=== PATIENT | male | born 1985 | race American Indian/Alaskan Native ===

== ENCOUNTER 2018-11-30 22:45 | Emergency (ER) | payer MEDICAID ==
--- NOTE | 2018-11-30 23:16 | EDM.PDOC ---
ED HPI GENERAL MEDICAL PROBLEM - General Chief Complaint: Upper Extremity Injury/Pain Stated Complaint: DISLOCATED FINGERS RT HAND [id number] Time Seen by Provider: 11/30/18 23:10 Source of Information: Reports: Patient History Limitations: Reports: No Limitations - History of Present Illness INITIAL COMMENTS - FREE TEXT/NARRATIVE: C/o right hand pain reports bumped hand on pole at work on Thursday, felt like it dislocated or broke. Has not been seen prior to tonight . Emplayed at tire - Related Data Allergies Allergy/AdvReac Type Severity Reaction Status Date / Time No Known Allergies Allergy Verified 11/30/18 22:50 Home Meds: Home Meds . [No Known Home Meds] 11/30/18 [History] Past Medical History - Past Surgical History GI Surgical History: Reports: Appendectomy Musculoskeletal Surgical History: Reports: Other (See Below) Other Musculoskeletal Surgeries/Procedures:: hand surgery Social & Family History - Tobacco Use Smoking Status *Q: Never Smoker Second Hand Smoke Exposure: No - Recreational Drug Use Recreational Drug Use: Yes Drug Use in Last 12 Months: Yes Recreational Drug Type: Reports: Marijuana/Hashish Review of Systems - Review of Systems Review Of Systems: See Below Constitutional: Reports: No Symptoms Eyes: Reports: No Symptoms Ears: Reports: No Symptoms Nose: Reports: No Symptoms Mouth/Throat: Reports: No Symptoms Respiratory: Reports: No Symptoms GI/Abdominal: Reports: No Symptoms Musculoskeletal: Reports: Hand Pain (right) Skin: Reports: No Symptoms Neurological: Reports: No Symptoms ED EXAM, GENERAL - Physical Exam Exam: See Below Exam Limited By: No Limitations General Appearance: Alert, Anxious Eye Exam: Bilateral Eye: PERRL Ears: Normal External Exam, Hearing Grossly Normal Nose: Normal Inspection Throat/Mouth: Normal Inspection Head: Atraumatic, Normocephalic Neck: Normal Inspection Respiratory/Chest: No Respiratory Distress Cardiovascular: Normal Peripheral Pulses, Regular Rate, Rhythm Extremities: Other (right hand mild generalized sweling anterior, no redness no bruising generalized tenderness greater 4th and 5th MCP) Neurological: Alert, Oriented, Inattentive Psychiatric: Anxious (rapid speech, ) Skin Exam: Warm, Dry, Other (multiple scattered small 3-5 mm abrasion ot palm fingers and MCP and hand. ) Course - Vital Signs Last Recorded V/S: Last Vital Signs Temp 97.2 F 11/30/18 22:47 Pulse 116 H 04/30/19 22:47 Resp 18 11/30/18 22:47 BP 153/83 H 11/30/18 22:47 Pulse Ox 99 11/30/18 22:47 - Radiology Interpretation Free Text/Narrative:: Xray right hand negative Departure - Departure Time of Disposition: 23:17 Disposition: Home, Self-Care 01 Condition: Good Clinical Impression: Contusion of right hand Qualifiers: Encounter type: initial encounter Qualified Code(s): S60.221A - Contusion of right hand, initial encounter - Discharge Information *PRESCRIPTION DRUG MONITORING PROGRAM REVIEWED*: No *COPY OF PRESCRIPTION DRUG MONITORING REPORT IN PATIENT VASU: No Instructions: Hand Contusion, [id number] Referrals: PCP,None [Primary Care Provider] - Forms: ED Department Discharge Additional Instructions: elevate magalys wrap for comfort alternate tylenol and ibuprofen for discomfort every 4 hours as needed follow up if symptoms worsen
== END 2018-11-30 23:24 | disposition home or self-care (01) ==
LOC: DL.ED 22:45
DX: S60.221A Contusion of right hand, initial encounter (principal); W22.8XXA Striking against or struck by other objects, initial encounter; Y99.0 Civilian activity done for income or pay
CPT/HCPCS: 73130-RT; 99283-25

== ENCOUNTER 2019-04-11 11:41 | Inpatient (IN) | payer MEDICAID ==
--- NOTE | 2019-04-11 11:57 | EDM.PDOC ---
ED HPI GENERAL MEDICAL PROBLEM - General Chief Complaint: ENT Problem Stated Complaint: INFECTION Time Seen by Provider: 04/11/19 11:57 Source of Information: Reports: Patient, RN, RN Notes Reviewed History Limitations: Reports: No Limitations - History of Present Illness INITIAL COMMENTS - FREE TEXT/NARRATIVE: Pt presents to ER from home with c/o waking with swelling and pain to the left face from the eye to the ear. Pt states he was seen in clinic and given Erythromycin eye ointment for an eye infection but it did not improve. This morning when he woke he notice purulent drainage from the skin just in front of the left ear, increased eye pain and swelling, and redness with swelling of the left external ear and area around the ear. Pt isn't sure if he has had any fevers or not. He admits to feeling a generalized "ill" feeling. Pt does not know if he has ever had a MRSA infection or not. Onset: Gradual Duration: Constant, Getting Worse Location: Reports: Face Quality: Reports: Ache, Pressure, Throbbing Severity: Moderate Improves with: Reports: None Worsens with: Reports: None Associated Symptoms: Reports: No Other Symptoms Treatments [employer]: Reports: Other Medication(s) (Erythromycin Ophthalmic Ointment) - Related Data Allergies Allergy/AdvReac Type Severity Reaction Status Date / Time No Known Allergies Allergy Verified 11/30/18 22:50 Home Meds: Home Meds . [No Known Home Meds] 11/30/18 [History] Past Medical History HEENT History: Reports: Hard of Hearing, Impaired Vision Endocrine/Metabolic History: Reports: Obesity/BMI 30+ - Past Surgical History GI Surgical History: Reports: Appendectomy Musculoskeletal Surgical History: Reports: Other (See Below) Other Musculoskeletal Surgeries/Procedures:: hand surgery Social & Family History - Family History Family Medical History: Noncontributory ED ROS ENT - Review of Systems Review Of Systems: ROS reveals no pertinent complaints other than HPI. ED EXAM, ENT - Physical Exam Exam: See Below Exam Limited By: No Limitations General Appearance: Alert, No Apparent Distress, Obese Eye Exam: Left Eye: Conjunctival Injection, Periorbital Changes (mild swelling/ inflammation with erythema), Bilateral Eye: EOMI, Normal Fundi, PERRL Ears: Hearing Loss (Chronic/Stable per pt.), Auricular Erythema (Left), Auricular Tenderness (and Pre-auricular with swelling, skin/soft tissue abscess with purulent drainage), Canal Swelling (Left). No: Mastoid Swelling, Mastoid Tenderness Nose: No Blood, Other (Excoriation/scabbing at B/L nares, suspicious for MRSA) Mouth/Throat: Normal Inspection, Normal Lips, Normal Oropharynx Head: Atraumatic, Facial Swelling (Left face from left eye to left ear, swelling is confined to the upper face, left side only), Facial Tenderness ( with erythema) Neck: Supple, Non-Tender, Full Range of Motion, Lymphadenopathy (L), Other (No nuchal rigidity). No: Lymphadenopathy (R) Respiratory/Chest: No Respiratory Distress, Lungs Clear, Normal Breath Sounds, No Accessory Muscle Use, Chest Non-Tender Cardiovascular: Regular Rate, Rhythm, Tachycardia Extremities: Normal Inspection, Normal Range of Motion, No Pedal Edema. No: Joint Swelling, Increased Warmth, Redness Neurological: Alert, Oriented, CN II-XII Intact, Normal Cognition, No Motor/ Sensory Deficits Psychiatric: Normal Mood Course - Vital Signs Last Recorded V/S: Last Vital Signs Temp 100.2 F 04/11/19 11:45 Pulse 114 H 04/11/19 11:45 Resp 16 04/11/19 11:45 BP 154/90 H 04/11/19 11:45 Pulse Ox - Orders/Labs/Meds Orders: Active Orders 24 hr Category Date Time Status Peripheral IV Care [RC] . DIRECTED Care 04/11/19 11:58 Active CULTURE BLOOD [BC] Stat Lab 04/11/19 12:08 Received CULTURE BLOOD [BC] Stat Lab 04/11/19 12:15 Received CULTURE EAR [RM] Stat Lab 04/11/19 11:55 Received CULTURE EYE [RM] Stat Lab 04/11/19 11:54 Received Piperacillin/Tazobactam [Zosyn] 3.375 gm Med 04/11/19 13:35 Active Sodium Chloride 0.9% [Normal Saline] 100 ml IV ONETIME Sodium Chloride 0.9% [Saline Flush] Med 04/11/19 11:58 Active 10 ml FLUSH ASDIRECTED PRN Blood Culture x2 Reflex Set [OM.PC] Stat Oth 04/11/19 11:58 Ordered Peripheral IV Insertion Adult [OM.PC] Stat Oth 04/11/19 11:57 Ordered Medication Orders Piperacillin Sod/Tazobactam (Sod 3.375 gm/ Sodium Chloride) 100 mls @ 200 mls/ hr IV ONETIME ONE Stop: 04/11/19 14:04 Sodium Chloride (Saline Flush) 10 ml FLUSH ASDIRECTED PRN PRN Reason: Keep Vein Open Last Admin: 04/11/19 12:08 Dose: 10 ml Labs: Laboratory Tests 04/11/19 04/11/19 04/11/19 Range/Units 12:08 12:08 12:15 WBC 17.2 H (5.0-10.0) 10^3/uL RBC 5.20 (4.6-6.2) 10^6/uL Hgb 15.6 (14.0-18.0) g/dL Hct 44.7 (40.0-54.0) % MCV 86.0 (80-100) fL MCH 30.0 (27.0-34.0) pg MCHC 34.9 (33.0-35.0) g/dL Plt Count 376 (150-450) 10^3/uL Neut % (Auto) 81.8 H (42.2-75.2) % Lymph % (Auto) 9.3 L (20.5-50.1) % [place] % (Auto) 6.1 (2-8) % Eos % (Auto) 2.6 (1.0-3.0) % Baso % (Auto) 0.2 (0.0-1.0) % Sodium 134 L (135-145) mmol/L Potassium 4.3 (3.6-5.0) mmol/L Chloride 102 (101-111) mmol/L Carbon Dioxide 25.0 (21.0-31.0) mmol/L Anion Gap 11.3 BUN 13 (7-18) mg/dL Creatinine 0.7 (0.6-1.3) mg/dL Est Cr Clr Drug Dosing 134.18 mL/min Estimated GFR (MDRD) > 60 BUN/Creatinine Ratio 18.57 Glucose 99 (74-105) mg/dL Lactic Acid 1.4 (0.5-2.2) mmol/L Calcium 8.9 (8.4-10.2) mg/dl Total Bilirubin 0.4 (0.2-1.0) mg/dL AST 71 H (10-42) IU/L ALT 80 H (10-60) IU/L Alkaline Phosphatase 106 (42-121) IU/L C-Reactive Protein (0.0-1.3) mg/dL Total Protein 7.5 (6.7-8.2) g/dl Albumin 4.0 (3.2-5.5) g/dl Globulin 3.5 Albumin/Globulin Ratio 1.14 04/11/19 Range/Units 12:15 WBC (5.0-10.0) 10^3/uL RBC (4.6-6.2) 10^6/uL Hgb (14.0-18.0) g/dL Hct (40.0-54.0) % MCV (80-100) fL MCH (27.0-34.0) pg MCHC (33.0-35.0) g/dL Plt Count (150-450) 10^3/uL Neut % (Auto) (42.2-75.2) % Lymph % (Auto) (20.5-50.1) % [place] % (Auto) (2-8) % Eos % (Auto) (1.0-3.0) % Baso % (Auto) (0.0-1.0) % Sodium (135-145) mmol/L Potassium (3.6-5.0) mmol/L Chloride (101-111) mmol/L Carbon Dioxide (21.0-31.0) mmol/L Anion Gap BUN (7-18) mg/dL Creatinine (0.6-1.3) mg/dL Est Cr Clr Drug Dosing mL/min Estimated GFR (MDRD) BUN/Creatinine Ratio Glucose (74-105) mg/dL Lactic Acid (0.5-2.2) mmol/L Calcium (8.4-10.2) mg/dl Total Bilirubin (0.2-1.0) mg/dL AST (10-42) IU/L ALT (10-60) IU/L Alkaline Phosphatase (42-121) IU/L C-Reactive Protein 4.1 H (0.0-1.3) mg/dL Total Protein (6.7-8.2) g/dl Albumin (3.2-5.5) g/dl Globulin Albumin/Globulin Ratio Meds: Medications Generic Name Dose Route Start Last Admin Trade Name Freq PRN Reason Stop Dose Admin Piperacillin Sod/Tazobactam 100 mls @ 200 mls/hr 04/11/19 13:35 Sod 3.375 gm/ Sodium Chloride IV 04/11/19 14:04 ONETIME ONE Sodium Chloride 10 ml 04/11/19 11:58 04/11/19 12:08 Saline Flush FLUSH 10 ml ASDIRECTED PRN Administration Keep Vein Open Discontinued Medications Generic Name Dose Route Start Last Admin Trade Name Freq PRN Reason Stop Dose Admin Diphenhydramine HCl 25 mg 04/11/19 11:58 04/11/19 12:28 Benadryl IVPUSH 04/11/19 11:59 25 mg ONETIME ONE Administration Gentamicin Sulfate 1 ml 04/11/19 12:04 04/11/19 12:26 Garamycin 0.3% Ophth Soln EYELF 04/11/19 12:05 1 ml ONETIME ONE Administration Sodium Chloride 1,000 mls @ 999 mls/hr 04/11/19 11:58 04/11/19 12:47 Normal Saline IV 04/11/19 12:58 999 mls/hr .BOLUS ONE Administration Vancomycin HCl 1,500 mg/ 500 mls @ 333.333 mls/hr 04/11/19 11:59 04/11/19 12: 28 Sodium Chloride IV 04/11/19 13:28 333.333 mls/hr ONETIME ONE Administration Iopamidol 100 ml 04/11/19 12:16 04/11/19 12:45 Isovue-300 (61%) IVPUSH 04/11/19 12:17 100 ml ONETIME ONE Administration Mupirocin 15 gm 04/11/19 12:04 04/11/19 12:24 Bactroban Oint TOP 04/11/19 12:05 15 gm ONETIME ONE Administration - Radiology Interpretation Free Text/Narrative:: [facility] Final Radiology Report Call: [phone] assistance Online chat: [email or web address] Name: STAN CHACKO Age: 33Years M Date: 04/11/2019 SSN: -- : [id number] Study: CT MAXILLOFACIAL/SINUSES W Requesting Physician: CHA PERALTA Images: [id number] Addl Studies: Provided Clinical History: Swelling L face, eye to ear, erythema. Purulent drainage from skin at pre-auricular left ear Contrast: With Contrast Medium: Isovue 300 Contrast Amount: 100 mL Contrast Method: RLA Page 1 of 2 EXAM: CT Maxillofacial With Contrast EXAM DATE/TIME: 04/11/2019 12:44 PM CLINICAL HISTORY: 33 years old, male; Other: Swelling L face, eye to ear, erythema; Additional info: Swelling L face, eye to ear, erythema. Purulent drainage from skin at pre-auricular left ear TECHNIQUE: Imaging protocol: Computed tomography images of the face with intravenous contrast. Radiation optimization: All CT scans at this facility use at least one of these dose optimization techniques: automated exposure control; mA and/or kV adjustment per patient size (includes targeted exams where dose is matched to clinical indication); or iterative reconstruction. Contrast material: ISOVUE 300; Contrast volume: 100 ml; Contrast route: RLA; COMPARISON: No relevant prior studies available. FINDINGS: Orbits: No post septal orbital inflammatory changes. Sinuses: Mild sinus mucosal thickening. No air-fluid levels. Bones/joints: No acute fracture or periostitis seen. Dental: There are maxillary premolar dental caries with periapical lucencies consistent with endodontal disease. Lymph nodes: Mildly enlarged left submandibular, periparotid and intraparotid lymph nodes, likely reactive. Submandibular/Parotid glands: The left parotid gland appears enlarged and inflamed consistent with parotiditis. STAN CHACKO | Final Radiology Report CONFIDENTIALITY STATEMENT This report is intended only for use by the referring physician, and only in accordance with law. If you received this in error, call [phone]. Page 2 of 2 Soft tissues: There is left auricular and periauricular soft tissue edema consistent with cellulitis. A left preauricular soft tissue abscess measuring 1.2 x 1.1 cm on image 8 of series 5. IMPRESSION: 1. Findings consistent with left periauricular cellulitis as well as left parotiditis. 2. There is a left preauricular soft tissue abscess measuring 1.2 x 1.1 cm. 3. Significant chronic maxillary premolar dental disease, could be a predisposing risk factor for parotiditis. Thank you for allowing us to participate in the care of your patient. Dictated and Authenticated by: Susu Haywood MD 04/11/2019 1:34 PM Central Time ([place] & [place]) Departure - Departure Time of Disposition: 13:52 (admitted to Dr. Lyon) Disposition: Admitted As Inpatient 65 Condition: Fair Clinical Impression: Facial cellulitis - Discharge Information *PRESCRIPTION DRUG MONITORING PROGRAM REVIEWED*: No *COPY OF PRESCRIPTION DRUG MONITORING REPORT IN PATIENT VASU: No Forms: ED Department Discharge - My Orders Last 24 Hours: My Active Orders 04/11/19 11:54 CULTURE EYE [RM] Stat 04/11/19 11:55 CULTURE EAR [RM] Stat 04/11/19 11:57 Peripheral IV Insertion Adult [OM.PC] Stat 04/11/19 11:58 Peripheral IV Care [RC] . DIRECTED Sodium Chloride 0.9% [Saline Flush] 10 ml FLUSH ASDIRECTED PRN Blood Culture x2 Reflex Set [OM.PC] Stat 04/11/19 12:08 CULTURE BLOOD [BC] Stat 04/11/19 12:15 CULTURE BLOOD [BC] Stat 04/11/19 13:35 Piperacillin/Tazobactam [Zosyn] 3.375 gm Sodium Chloride 0.9% [Normal Saline] 100 ml IV ONETIME - Assessment/Plan Last 24 Hours: My Active Orders 04/11/19 11:54 CULTURE EYE [RM] Stat 04/11/19 11:55 CULTURE EAR [RM] Stat 04/11/19 11:57 Peripheral IV Insertion Adult [OM.PC] Stat 04/11/19 11:58 Peripheral IV Care [RC] . DIRECTED Sodium Chloride 0.9% [Saline Flush] 10 ml FLUSH ASDIRECTED PRN Blood Culture x2 Reflex Set [OM.PC] Stat 04/11/19 12:08 CULTURE BLOOD [BC] Stat 04/11/19 12:15 CULTURE BLOOD [BC] Stat 04/11/19 13:35 Piperacillin/Tazobactam [Zosyn] 3.375 gm Sodium Chloride 0.9% [Normal Saline] 100 ml IV ONETIME
[2019-04-11] MEDS ORDERED: Sodium Chloride 0.9% 1,000 ML IV ONE (11:58)
[2019-04-11] MEDS ORDERED: diphenhydrAMINE 50 MG/ML SDV IVPUSH ONE (11:58)
[2019-04-11] MEDS ORDERED: Mupirocin Oint 22 GM Tube TOP ONE (12:04)
[2019-04-11] MEDS ORDERED: Gentamicin 0.3% Ophth Soln 5 ML Bottle EYELF ONE (12:04)
[2019-04-11] MEDS: Sodium Chloride 0.9% 10 ML Syringe FLUSH PRN ×4 (12:08→23:55)
[2019-04-11] MEDS ORDERED: Iopamidol 612 MG/ML 100 ML Bottle IVPUSH ONE (12:16)
[2019-04-11 12:43] LABS: ANION GAP 11.3; CHLORIDE,CL 102 mmol/L (101-111); SODIUM,NA 134 mmol/L (135-145)
[2019-04-11] MEDS ORDERED: Piperacillin/Tazobactam 3.375 GM in Sodium Chloride 0.9% 100 ML IV ONE (13:35)
[2019-04-11] MEDS ORDERED: Ondansetron 4 MG Tab.DIS PO PRN (14:25)
[2019-04-11] MEDS ORDERED: Ondansetron 4 MG/2 ML SDV IVPUSH PRN (14:25)
[2019-04-11] MEDS ORDERED: Acetaminophen 325 MG Tab PO PRN (14:25)
--- NOTE | 2019-04-11 14:32 | PCM.HP ---
H&P History of Present Illness - General Date of Service: 04/11/19 Admit Problem/Dx: Admission Diagnosis/Problem Admission Diagnosis/Problem Cellulitis and abscess of face Source of Information: Patient, Provider - History of Present Illness Initial Comments - Free Text/Narative: 33-year-old with history of pre-diabetes He is using methamphetamine recreationally, daily marijuana. He is not working, staying at home with his 4-year-old daughter. He developed left sided facial swelling associated with drainage from in front of the left ureter. There is moderate to severe pain associated with this. Worse with touching. Associated redness. Did not measure her temperature but has a general "ill" feeling. No chest pain, no abdominal pain. Last amphetamine use was the day before admission. - Related Data Allergies/Adverse Reactions: Allergies Allergy/AdvReac Type Severity Reaction Status Date / Time No Known Allergies Allergy Verified 11/30/18 22:50 Home Medications: Home Meds . [No Known Home Meds] 11/30/18 [History] Past Medical History HEENT History: Reports: Hard of Hearing, Impaired Vision Endocrine/Metabolic History: Reports: Obesity/BMI 30+ - Past Surgical History GI Surgical History: Reports: Appendectomy Musculoskeletal Surgical History: Reports: Other (See Below) Other Musculoskeletal Surgeries/Procedures:: hand surgery Social & Family History - Family History Family Medical History: Noncontributory - Caffeine Use Caffeine Use: Reports: Coffee, Soda - Recreational Drug Use Recreational Drug Use: Yes Drug Use in Last 12 Months: Yes Recreational Drug Type: Reports: Marijuana/Hashish, Methamphetamine H&P Review of Systems - Review of Systems: Review Of Systems: See Below General: Reports: Chills, Malaise. Denies: Fever HEENT: Reports: Other (Left facial swelling and redness between the left eye and left ear lobe) Pulmonary: Denies: Shortness of Breath Cardiovascular: Denies: Chest Pain, Edema Musculoskeletal: Reports: No Symptoms Skin: Reports: Other (Left facial swelling and redness) Neurological: Reports: Other (No vision change, no double vision). Denies: Confusion Exam - Exam Exam: See Below - Vital Signs Vital Signs: Last Vital Signs Temp 37.9 C 04/11/19 11:45 Pulse 114 H 04/11/19 11:45 Resp 16 04/11/19 11:45 BP 154/90 H 04/11/19 11:45 Pulse Ox Weight: 100.516 kg - Exam General: Alert, Oriented HEENT: Conjunctiva Clear, EOMI, Hearing Intact, Other (Swelling in the left parotid area from the external ear to I) Lungs: Clear to Auscultation Cardiovascular: Regular Rate, Regular Rhythm GI/Abdominal Exam: Normal Bowel Sounds, Soft, Non-Tender Extremities: No Pedal Edema Skin: Warm, Other (Swelling and redness of left facial area) Neuro Extensive - Mental Status: Alert, Oriented x3, Other (Somewhat jittery) Psychiatric: Alert, Anxious - Patient Data Lab Results Last 24 hrs: Laboratory Results - last 24 hr 04/11/19 04/11/19 04/11/19 Range/Units 12:08 12:08 12:15 WBC 17.2 H (5.0-10.0) 10^3/uL RBC 5.20 (4.6-6.2) 10^6/uL Hgb 15.6 (14.0-18.0) g/dL Hct 44.7 (40.0-54.0) % MCV 86.0 (80-100) fL MCH 30.0 (27.0-34.0) pg MCHC 34.9 (33.0-35.0) g/dL Plt Count 376 (150-450) 10^3/uL Neut % (Auto) 81.8 H (42.2-75.2) % Lymph % (Auto) 9.3 L (20.5-50.1) % [place] % (Auto) 6.1 (2-8) % Eos % (Auto) 2.6 (1.0-3.0) % Baso % (Auto) 0.2 (0.0-1.0) % Sodium 134 L (135-145) mmol/L Potassium 4.3 (3.6-5.0) mmol/L Chloride 102 (101-111) mmol/L Carbon Dioxide 25.0 (21.0-31.0) mmol/L Anion Gap 11.3 BUN 13 (7-18) mg/dL Creatinine 0.7 (0.6-1.3) mg/dL Est Cr Clr Drug Dosing 134.18 mL/min Estimated GFR (MDRD) > 60 BUN/Creatinine Ratio 18.57 Glucose 99 (74-105) mg/dL Lactic Acid 1.4 (0.5-2.2) mmol/L Calcium 8.9 (8.4-10.2) mg/dl Total Bilirubin 0.4 (0.2-1.0) mg/dL AST 71 H (10-42) IU/L ALT 80 H (10-60) IU/L Alkaline Phosphatase 106 (42-121) IU/L C-Reactive Protein (0.0-1.3) mg/dL Total Protein 7.5 (6.7-8.2) g/dl Albumin 4.0 (3.2-5.5) g/dl Globulin 3.5 Albumin/Globulin Ratio 1.14 /04/21 Range/Units 12:15 WBC (5.0-10.0) 10^3/uL RBC (4.6-6.2) 10^6/uL Hgb (14.0-18.0) g/dL Hct (40.0-54.0) % MCV (80-100) fL MCH (27.0-34.0) pg MCHC (33.0-35.0) g/dL Plt Count (150-450) 10^3/uL Neut % (Auto) (42.2-75.2) % Lymph % (Auto) (20.5-50.1) % [place] % (Auto) (2-8) % Eos % (Auto) (1.0-3.0) % Baso % (Auto) (0.0-1.0) % Sodium (135-145) mmol/L Potassium (3.6-5.0) mmol/L Chloride (101-111) mmol/L Carbon Dioxide (21.0-31.0) mmol/L Anion Gap BUN (7-18) mg/dL Creatinine (0.6-1.3) mg/dL Est Cr Clr Drug Dosing mL/min Estimated GFR (MDRD) BUN/Creatinine Ratio Glucose (74-105) mg/dL Lactic Acid (0.5-2.2) mmol/L Calcium (8.4-10.2) mg/dl Total Bilirubin (0.2-1.0) mg/dL AST (10-42) IU/L ALT (10-60) IU/L Alkaline Phosphatase (42-121) IU/L C-Reactive Protein 4.1 H (0.0-1.3) mg/dL Total Protein (6.7-8.2) g/dl Albumin (3.2-5.5) g/dl Globulin Albumin/Globulin Ratio Result Diagrams: 04/11/19 12:08 04/11/19 12:15 Imaging Impressions Last 24 hrs: CT facial IMPRESSION: 1. Findings consistent with left periauricular cellulitis as well as left parotiditis. 2. There is a left preauricular soft tissue abscess measuring 1.2 x 1.1 cm. 3. Significant chronic maxillary premolar dental disease, could be a predisposing risk factor for parotiditis. - Problem List (1) Facial cellulitis SNOMED Code(s): 729589291 ICD Code: L03.211 - CELLULITIS OF FACE Status: Acute Current Visit: No Problem List Initiated/Reviewed/Updated: Yes Orders Last 24hrs: Active Orders 24 hr Category Date Time Status Admission Diagnosis [ADT] Routine ADT 04/11/19 13:52 Ordered Patient Status [ADT] Routine ADT 04/11/19 13:52 Active Oxygen Therapy [RC] PRN Care 04/11/19 14:25 Ordered Peripheral IV Care [RC] . DIRECTED Care 04/11/19 11:58 Active Up With Assistance [RC] ASDIRECTED Care 04/11/19 14:25 Ordered VTE/DVT Education [RC] PER UNIT ROUTINE Care 04/11/19 14:25 Ordered Vital Signs [RC] Q4H Care 04/11/19 14:25 Ordered Regular Diet [DIET] Diet 04/11/19 Dinner Ordered BASIC METABOLIC PANEL,BMP [CHEM] AM Lab 04/12/19 05:15 Ordered CBC WITH AUTO DIFF [HEME] AM Lab 04/12/19 05:15 Ordered CULTURE BLOOD [BC] Stat Lab 04/11/19 12:08 Received CULTURE BLOOD [BC] Stat Lab 04/11/19 12:15 Received CULTURE EAR [RM] Stat Lab 04/11/19 11:55 Received CULTURE EYE [RM] Stat Lab 04/11/19 11:54 Received Acetaminophen [Tylenol] Med 04/11/19 14:25 Ordered 650 mg PO Q4H PRN Acetaminophen/oxyCODONE [Percocet 325-5 MG] Med 04/11/19 14:25 Ordered 1 tab PO Q4H PRN Gentamicin [Garamycin 0.3% Ophth Soln] Med 04/11/19 21:00 Ordered 1 ml EYELF TID Heparin Sodium Med 04/11/19 22:00 Ordered 5,000 units SUBCUT Q8HR Ibuprofen [Motrin] Med 04/11/19 14:25 Ordered 600 mg PO Q6H PRN Ondansetron [Zofran ODT] Med 04/11/19 14:25 Ordered 4 mg PO Q6H PRN Ondansetron [Zofran] Med 04/11/19 14:25 Ordered 4 mg IVPUSH Q6H PRN Pharmacy to Dose - Vancomycin Med 04/11/19 14:30 Ordered 1 dose .XX ASDIRECTED Piperacillin/Tazobactam [Zosyn] 3.375 gm Med 04/11/19 19:00 Ordered Sodium Chloride 0.9% [Normal Saline] 100 ml IV Q6H Sodium Chloride 0.9% [Saline Flush] Med 04/11/19 11:58 Active 10 ml FLUSH ASDIRECTED PRN Zolpidem [Ambien] Med 04/11/19 14:25 Ordered 5 mg PO BEDTIME PRN Blood Culture x2 Reflex Set [OM.PC] Stat Ot 04/11/19 11:58 Ordered Peripheral IV Insertion Adult [OM.PC] Stat Ot 04/11/19 11:57 Ordered Resuscitation Status Routine Resus Stat 04/11/19 14:25 Ordered Medication Orders Acetaminophen (Tylenol) 650 mg PO Q4H PRN PRN Reason: Pain (Mild 1-3)/fever Gentamicin Sulfate (Garamycin 0.3% [facility]) 1 ml EYELF TID SHAINA Heparin Sodium (Porcine) (Heparin Sodium) 5,000 units SUBCUT Q8HR SHAINA Piperacillin Sod/Tazobactam (Sod 3.375 gm/ Sodium Chloride) 100 mls @ 200 mls/ hr IV Q6HR SHAINA Ibuprofen (Motrin) 600 mg PO Q6H PRN PRN Reason: Pain (moderate 4-6) Ondansetron HCl (Zofran) 4 mg IVPUSH Q6H PRN PRN Reason: Nausea/Vomiting Ondansetron HCl (Zofran Odt) 4 mg PO Q6H PRN PRN Reason: nausea, able to take PO Oxycodone/Acetaminophen (Percocet 325-5 Mg) 1 tab PO Q4H PRN PRN Reason: Pain (severe 7-10) Sodium Chloride (Saline Flush) 10 ml FLUSH ASDIRECTED PRN PRN Reason: Keep Vein Open Last Admin: 04/11/19 12:08 Dose: 10 ml Vancomycin HCl (Pharmacy To Dose - Vancomycin) 1 dose .XX ASDIRECTED SHAINA Zolpidem Tartrate (Ambien) 5 mg PO BEDTIME PRN PRN Reason: Sleep Assessment/Plan Comment:: 43-year-old presented with left facial redness, swelling, 1 x 1 cm abscess Facial cellulitis with small abscess At this point the abscess probably can be treated with medications We'll monitor closely for needs surgical drainage Obtain blood culture, culture from drainage Treat empirically with vancomycin and Zosyn History of drug use with amphetamine, marijuana Follow for potential withdrawal symptoms History of present diabetes We'll check fasting sugar in the morning DVT prophylaxis with subcutaneous heparin
[2019-04-11] MEDS: Ibuprofen 600 MG Tab PO PRN ×2 (16:21→22:24)
[2019-04-11] MEDS: Piperacillin/Tazobactam 3.375 GM in Sodium Chloride 0.9% 100 ML IV SCH ×2 (17:48→23:56)
[2019-04-11] MEDS: Gentamicin 0.3% Ophth Soln 5 ML Bottle EYELF SCH (20:19)
[2019-04-11] MEDS: Heparin Sodium 5,000 Units/ML Vial SUBCUT SCH (22:15)
[2019-04-11] MEDS: Zolpidem 5 MG Tab PO PRN (22:39)
[2019-04-12] MEDS: Sodium Chloride 0.9% 10 ML Syringe FLUSH PRN ×4 (04:19→23:59)
[2019-04-12] MEDS: Ibuprofen 600 MG Tab PO PRN (04:29)
[2019-04-12] MEDS: Piperacillin/Tazobactam 3.375 GM in Sodium Chloride 0.9% 100 ML IV SCH ×4 (06:11→23:59)
[2019-04-12] MEDS: Heparin Sodium 5,000 Units/ML Vial SUBCUT SCH ×3 (06:19→21:34)
[2019-04-12 07:03] LABS: ANION GAP 12.8; CHLORIDE,CL 102 mmol/L (101-111); SODIUM,NA 138 mmol/L (135-145)
[2019-04-12] MEDS: Gentamicin 0.3% Ophth Soln 5 ML Bottle EYELF SCH ×3 (09:22→20:49)
--- NOTE | 2019-04-12 10:44 | PCM.PN ---
- General Info Date of Service: 04/12/19 Admission Dx/Problem (Free Text): Admission Diagnosis/Problem Admission Diagnosis/Problem Cellulitis and abscess of face Subjective Update: Continues to have left facial swelling and discomfort associated with this. Started prior to admission. Moderate to severe degree. There is an area of a small about 1 cm abscess that is draining anterior to the external ear canal. Good drainage is coming. Tolerating antibiotics. Tolerating pain. Functional Status: Reports: Pain Controlled, Tolerating Diet, Ambulating - Review of Systems General: Denies: Fever HEENT: Reports: Other (Swelling on the left side) Pulmonary: Denies: Shortness of Breath Cardiovascular: Denies: Chest Pain Gastrointestinal: Denies: Abdominal Pain Genitourinary: Denies: Dysuria Neurological: Denies: Confusion - Patient Data Vitals - Most Recent: Last Vital Signs Temp 37.0 C 04/12/19 07:00 Pulse 76 04/12/19 07:00 Resp 20 04/12/19 07:00 BP 116/69 04/12/19 07:00 Pulse Ox 99 04/12/19 07:00 Weight - Most Recent: 100.516 kg I&O - Last 24 Hours: Intake & Output 04/11/19 04/12/19 04/12/19 22:59 06:59 14:59 Intake Total 1270 450 440 Balance 1270 450 440 Lab Results Last 24 Hours: Laboratory Results - last 24 hr 04/11/19 04/11/19 04/11/19 Range/Units 12:08 12:08 12:15 WBC 17.2 H (5.0-10.0) 10^3/uL RBC 5.20 (4.6-6.2) 10^6/uL Hgb 15.6 (14.0-18.0) g/dL Hct 44.7 (40.0-54.0) % MCV 86.0 (80-100) fL MCH 30.0 (27.0-34.0) pg MCHC 34.9 (33.0-35.0) g/dL Plt Count 376 (150-450) 10^3/uL Neut % (Auto) 81.8 H (42.2-75.2) % Lymph % (Auto) 9.3 L (20.5-50.1) % [place] % (Auto) 6.1 (2-8) % Eos % (Auto) 2.6 (1.0-3.0) % Baso % (Auto) 0.2 (0.0-1.0) % Sodium 134 L (135-145) mmol/L Potassium 4.3 (3.6-5.0) mmol/L Chloride 102 (101-111) mmol/L Carbon Dioxide 25.0 (21.0-31.0) mmol/L Anion Gap 11.3 BUN 13 (7-18) mg/dL Creatinine 0.7 (0.6-1.3) mg/dL Est Cr Clr Drug Dosing 134.18 mL/min Estimated GFR (MDRD) > 60 BUN/Creatinine Ratio 18.57 Glucose 99 (74-105) mg/dL Lactic Acid 1.4 (0.5-2.2) mmol/L Calcium 8.9 (8.4-10.2) mg/dl Total Bilirubin 0.4 (0.2-1.0) mg/dL AST 71 H (10-42) IU/L ALT 80 H (10-60) IU/L Alkaline Phosphatase 106 (42-121) IU/L C-Reactive Protein (0.0-1.3) mg/dL Total Protein 7.5 (6.7-8.2) g/dl Albumin 4.0 (3.2-5.5) g/dl Globulin 3.5 Albumin/Globulin Ratio 1.14 04/11/19 04/12/19 04/12/19 Range/Units 12:15 05:50 05:50 WBC 12.4 H (5.0-10.0) 10^3/uL RBC 4.88 (4.6-6.2) 10^6/uL Hgb 14.7 (14.0-18.0) g/dL Hct 42.8 (40.0-54.0) % MCV 87.7 (80-100) fL MCH 30.1 (27.0-34.0) pg MCHC 34.3 (33.0-35.0) g/dL Plt Count 337 (150-450) 10^3/uL Neut % (Auto) 70.6 (42.2-75.2) % Lymph % (Auto) 16.1 L (20.5-50.1) % [place] % (Auto) 7.0 (2-8) % Eos % (Auto) 6.0 H (1.0-3.0) % Baso % (Auto) 0.3 (0.0-1.0) % Sodium 138 (135-145) mmol/L Potassium 3.8 (3.6-5.0) mmol/L Chloride 102 (101-111) mmol/L Carbon Dioxide 27.0 (21.0-31.0) mmol/L Anion Gap 12.8 BUN 6 L (7-18) mg/dL Creatinine 0.9 (0.6-1.3) mg/dL Est Cr Clr Drug Dosing 104.36 mL/min Estimated GFR (MDRD) > 60 BUN/Creatinine Ratio Glucose 103 (74-105) mg/dL Lactic Acid (0.5-2.2) mmol/L Calcium 8.5 (8.4-10.2) mg/dl Total Bilirubin (0.2-1.0) mg/dL AST (10-42) IU/L ALT (10-60) IU/L Alkaline Phosphatase (42-121) IU/L C-Reactive Protein 4.1 H (0.0-1.3) mg/dL Total Protein (6.7-8.2) g/dl Albumin (3.2-5.5) g/dl Globulin Albumin/Globulin Ratio Joao Results Last 24 Hours: Microbiology 04/11/19 11:55 Ear Culture - Preliminary Ear, Left 04/11/19 11:54 Eye Culture - Preliminary Eye, Left Med Orders - Current: Current Medications Acetaminophen (Tylenol) 650 mg PO Q4H PRN PRN Reason: Pain (Mild 1-3)/fever Gentamicin Sulfate (Garamycin 0.3% Ophth Soln) 0 ml EYELF TID [facility] Last Admin: 04/12/19 09:22 Dose: 1 drop Heparin Sodium (Porcine) (Heparin Sodium) 5,000 units SUBCUT Q8HR [facility] Last Admin: 04/12/19 06:19 Dose: 5,000 units Piperacillin Sod/Tazobactam (Sod 3.375 gm/ Sodium Chloride) 100 mls @ 200 mls/ hr IV Q6HR [facility] Last Infusion: 04/12/19 06:48 Dose: Infused Vancomycin HCl 1.25 gm/ Sodium (Chloride) 250 mls @ 166.667 mls/hr IV Q8H [facility] Last Admin: 04/12/19 04:25 Dose: 166.667 mls/hr Ibuprofen (Motrin) 600 mg PO Q6H PRN PRN Reason: Pain (moderate 4-6) Last Admin: 04/12/19 04:29 Dose: 600 mg Ondansetron HCl (Zofran) 4 mg IVPUSH Q6H PRN PRN Reason: Nausea/Vomiting Ondansetron HCl (Zofran Odt) 4 mg PO Q6H PRN PRN Reason: nausea, able to take PO Oxycodone/Acetaminophen (Percocet 325-5 Mg) 1 tab PO Q4H PRN PRN Reason: Pain (severe 7-10) Sodium Chloride (Saline Flush) 10 ml FLUSH ASDIRECTED PRN PRN Reason: Keep Vein Open Last Admin: 04/12/19 04:19 Dose: 10 ml Vancomycin HCl (Pharmacy To Dose - Vancomycin) 0 dose .XX ASDIRECTED [facility] Zolpidem Tartrate (Ambien) 5 mg PO BEDTIME PRN PRN Reason: Sleep Last Admin: 04/11/19 22:39 Dose: 5 mg Discontinued Medications Diphenhydramine HCl (Benadryl) 25 mg IVPUSH ONETIME ONE Stop: 04/11/19 11:59 Last Admin: 04/11/19 12:28 Dose: 25 mg Gentamicin Sulfate (Garamycin 0.3% [facility]) 1 ml EYELF ONETIME ONE Stop: 04/11/19 12:05 Last Admin: 04/11/19 12:26 Dose: 1 ml Sodium Chloride (Normal Saline) 1,000 mls @ 999 mls/hr IV .BOLUS ONE Stop: 04/11/19 12:58 Last Infusion: 04/11/19 16:41 Dose: Infused Vancomycin HCl 1,500 mg/ (Sodium Chloride) 500 mls @ 333.333 mls/hr IV ONETIME ONE Stop: 04/11/19 13:28 Last Infusion: 04/11/19 16:40 Dose: Infused Piperacillin Sod/Tazobactam (Sod 3.375 gm/ Sodium Chloride) 100 mls @ 200 mls/ hr IV ONETIME ONE Stop: 04/11/19 14:04 Last Admin: 04/11/19 16:40 Dose: Not Given Vancomycin HCl 1.25 gm/ Sodium (Chloride) 250 mls @ 166.667 mls/hr IV Q8HR [facility] Iopamidol (Isovue-300 (61%)) 100 ml IVPUSH ONETIME ONE Stop: 04/11/19 12:17 Last Admin: 04/11/19 12:45 Dose: 100 ml Mupirocin (Bactroban Oint) 15 gm TOP ONETIME ONE Stop: 04/11/19 12:05 Last Admin: 04/11/19 12:24 Dose: 15 gm - Exam General: Alert, Oriented HEENT: Other (Left facial swelling with small about 1 cm fluctuating abscess with pussy drainage) Neck: Supple Lungs: Clear to Auscultation, Normal Respiratory Effort Cardiovascular: Regular Rate, Regular Rhythm GI/Abdominal Exam: Normal Bowel Sounds, Soft, Non-Tender Extremities: No Pedal Edema Skin: Warm, Dry Neurological: No New Focal Deficit Psy/Mental Status: Alert, Normal Affect, Normal Mood - Problem List & Annotations (1) Facial cellulitis SNOMED Code(s): 730815247 Code(s): L03.211 - CELLULITIS OF FACE Status: Acute Current Visit: No - Problem List Review Problem List Initiated/Reviewed/Updated: Yes - My Orders Last 24 Hours: My Active Orders 04/11/19 14:25 Oxygen Therapy [RC] PRN Up With Assistance [RC] ASDIRECTED VTE/DVT Education [RC] PER UNIT ROUTINE Vital Signs [RC] 07,11,15,19,23,03 Acetaminophen [Tylenol] 650 mg PO Q4H PRN Acetaminophen/oxyCODONE [Percocet 325-5 MG] 1 tab PO Q4H PRN Ibuprofen [Motrin] 600 mg PO Q6H PRN Ondansetron [Zofran ODT] 4 mg PO Q6H PRN Ondansetron [Zofran] 4 mg IVPUSH Q6H PRN Zolpidem [Ambien] 5 mg PO BEDTIME PRN Resuscitation Status Routine 04/11/19 14:30 Pharmacy to Dose - Vancomycin 0 dose .XX ASDIRECTED 04/11/19 18:00 Piperacillin/Tazobactam [Zosyn] 3.375 gm Sodium Chloride 0.9% [Normal Saline] 100 ml IV Q6HR 04/11/19 20:00 Vancomycin 1.25 gm Sodium Chloride 0.9% [Normal Saline] 250 ml IV Q8H 04/11/19 21:00 Gentamicin [Garamycin 0.3% Ophth Soln] 0 ml EYELF TID 04/11/19 22:00 Heparin Sodium 5,000 units SUBCUT Q8HR 04/11/19 Dinner Regular Diet [DIET] 04/12/19 19:30 VANCOMYCIN TROUGH [CHEM] Timed 04/13/19 05:15 BASIC METABOLIC PANEL,BMP [CHEM] AM CBC WITH AUTO DIFF [HEME] AM - Plan Plan:: 43-year-old presented with left facial redness, swelling, 1 x 1 cm abscess Facial cellulitis with small abscess At this point the abscess probably can be treated with medications It is draining well I do not think that the further surgical I&D is necessary We'll monitor closely for needs surgical drainage Pending blood culture, culture from drainage Treat empirically with vancomycin and Zosyn History of drug use with amphetamine, marijuana Follow for potential withdrawal symptoms History of present diabetes Today had normal fasting blood sugar in the morning DVT prophylaxis with subcutaneous heparin
[2019-04-12] MEDS: Acetaminophen/oxyCODONE 325-5 MG Tab PO PRN ×3 (10:58→19:59)
[2019-04-12] MEDS: Zolpidem 5 MG Tab PO PRN (21:34)
[2019-04-13] MEDS: Sodium Chloride 0.9% 10 ML Syringe FLUSH PRN ×2 (04:03→05:57)
[2019-04-13] MEDS: Heparin Sodium 5,000 Units/ML Vial SUBCUT SCH ×3 (05:43→21:03)
[2019-04-13] MEDS: Piperacillin/Tazobactam 3.375 GM in Sodium Chloride 0.9% 100 ML IV SCH (05:57)
[2019-04-13] MEDS: Acetaminophen/oxyCODONE 325-5 MG Tab PO PRN (06:08)
[2019-04-13 07:21] LABS: ANION GAP 12.2; CHLORIDE,CL 104 mmol/L (101-111); SODIUM,NA 139 mmol/L (135-145)
[2019-04-13] MEDS ORDERED: Potassium Chloride 10 MEQ Tab.ER PO ONE (08:23)
[2019-04-13] MEDS ORDERED: Iopamidol 612 MG/ML 100 ML Bottle IVPUSH ONE (09:32)
[2019-04-13] MEDS: Gentamicin 0.3% Ophth Soln 5 ML Bottle EYELF SCH ×3 (09:33→21:00)
--- NOTE | 2019-04-13 11:10 | PCM.PN ---
- General Info Date of Service: 04/13/19 Admission Dx/Problem (Free Text): Admission Diagnosis/Problem Admission Diagnosis/Problem Cellulitis and abscess of face Subjective Update: facial cellulitis improving, swelling and redness improved no painful distress no visual disturbance has chronic hearing loss, known, sees java developer consultant Functional Status: Reports: Pain Controlled - Review of Systems General: Denies: Fever HEENT: Reports: Other (chronic hearing loss, facial swelling) Pulmonary: Reports: No Symptoms Cardiovascular: Reports: No Symptoms Gastrointestinal: Reports: No Symptoms Genitourinary: Reports: No Symptoms Musculoskeletal: Reports: No Symptoms Skin: Reports: No Symptoms Neurological: Reports: No Symptoms - Patient Data Vitals - Most Recent: Last Vital Signs Temp 37.6 C 04/13/19 08:09 Pulse 86 04/13/19 08:09 Resp 20 04/13/19 08:09 BP 123/67 04/13/19 08:09 Pulse Ox 95 04/13/19 08:09 Weight - Most Recent: 100.516 kg I&O - Last 24 Hours: Intake & Output 04/12/19 04/13/19 04/13/19 22:59 06:59 14:59 Intake Total 550 450 440 Balance 550 450 440 Lab Results Last 24 Hours: Laboratory Results - last 24 hr 04/12/19 04/13/19 04/13/19 Range/Units 19:57 05:55 05:55 WBC 11.6 H (5.0-10.0) 10^3/uL RBC 4.66 (4.6-6.2) 10^6/uL Hgb 14.0 (14.0-18.0) g/dL Hct 41.0 (40.0-54.0) % MCV 88.0 (80-100) fL MCH 30.0 (27.0-34.0) pg MCHC 34.1 (33.0-35.0) g/dL Plt Count 372 (150-450) 10^3/uL Neut % (Auto) 63.0 (42.2-75.2) % Lymph % (Auto) 21.5 (20.5-50.1) % [place] % (Auto) 7.1 (2-8) % Eos % (Auto) 7.9 H (1.0-3.0) % Baso % (Auto) 0.5 (0.0-1.0) % Sodium 139 (135-145) mmol/L Potassium 3.2 L (3.6-5.0) mmol/L Chloride 104 (101-111) mmol/L Carbon Dioxide 26.0 (21.0-31.0) mmol/L Anion Gap 12.2 BUN 4 L (7-18) mg/dL Creatinine 0.7 (0.6-1.3) mg/dL Est Cr Clr Drug Dosing 134.18 mL/min Estimated GFR (MDRD) > 60 Glucose 137 H (74-105) mg/dL Calcium 8.2 L (8.4-10.2) mg/dl Vancomycin Trough 10.1 (10-15) ug/ml Joao Results Last 24 Hours: Microbiology 04/11/19 11:55 Ear Culture - Final Ear, Left Staphylococcus Aureus 04/11/19 11:54 Eye Culture - Final Eye, Left Staphylococcus Aureus 04/11/19 12:15 Aerobic Blood Culture - Preliminary Blood - Venous - Lab Draw NO GROWTH AFTER 1 DAY Anaerobic Blood Culture - Preliminary NO GROWTH AFTER 1 DAY 04/11/19 12:08 Aerobic Blood Culture - Preliminary Blood - Venous NO GROWTH AFTER 1 DAY Anaerobic Blood Culture - Preliminary NO GROWTH AFTER 1 DAY Med Orders - Current: Current Medications Acetaminophen (Tylenol) 650 mg PO Q4H PRN PRN Reason: Pain (Mild 1-3)/fever Gentamicin Sulfate (Garamycin 0.3% Ophth Soln) 0 ml EYELF TID [facility] Last Admin: 04/13/19 09:33 Dose: 1 drop Heparin Sodium (Porcine) (Heparin Sodium) 5,000 units SUBCUT Q8HR [facility] Last Admin: 04/13/19 05:43 Dose: 5,000 units Vancomycin HCl 1.25 gm/ Sodium (Chloride) 250 mls @ 166.667 mls/hr IV Q8H [facility] Last Admin: 04/13/19 04:04 Dose: 166.667 mls/hr Ibuprofen (Motrin) 600 mg PO Q6H PRN PRN Reason: Pain (moderate 4-6) Last Admin: 04/12/19 04:29 Dose: 600 mg Ondansetron HCl (Zofran) 4 mg IVPUSH Q6H PRN PRN Reason: Nausea/Vomiting Ondansetron HCl (Zofran Odt) 4 mg PO Q6H PRN PRN Reason: nausea, able to take PO Oxycodone/Acetaminophen (Percocet 325-5 Mg) 1 tab PO Q4H PRN PRN Reason: Pain (severe 7-10) Last Admin: 04/13/19 06:08 Dose: 1 tab Sodium Chloride (Saline Flush) 10 ml FLUSH ASDIRECTED PRN PRN Reason: Keep Vein Open Last Admin: 04/13/19 05:57 Dose: 10 ml Vancomycin HCl (Pharmacy To Dose - Vancomycin) 0 dose .XX ASDIRECTED [facility] Zolpidem Tartrate (Ambien) 5 mg PO BEDTIME PRN PRN Reason: Sleep Last Admin: 04/12/19 21:34 Dose: 5 mg Discontinued Medications Diphenhydramine HCl (Benadryl) 25 mg IVPUSH ONETIME ONE Stop: 04/11/19 11:59 Last Admin: 04/11/19 12:28 Dose: 25 mg Gentamicin Sulfate (Garamycin 0.3% [facility]) 1 ml EYELF ONETIME ONE Stop: 04/11/19 12:05 Last Admin: 04/11/19 12:26 Dose: 1 ml Sodium Chloride (Normal Saline) 1,000 mls @ 999 mls/hr IV .BOLUS ONE Stop: 04/11/19 12:58 Last Infusion: 04/11/19 16:41 Dose: Infused Vancomycin HCl 1,500 mg/ (Sodium Chloride) 500 mls @ 333.333 mls/hr IV ONETIME ONE Stop: 04/11/19 13:28 Last Infusion: 04/11/19 16:40 Dose: Infused Piperacillin Sod/Tazobactam (Sod 3.375 gm/ Sodium Chloride) 100 mls @ 200 mls/ hr IV ONETIME ONE Stop: 04/11/19 14:04 Last Admin: 04/11/19 16:40 Dose: Not Given Piperacillin Sod/Tazobactam (Sod 3.375 gm/ Sodium Chloride) 100 mls @ 200 mls/ hr IV Q6HR [facility] Last Infusion: 04/13/19 06:47 Dose: Infused Vancomycin HCl 1.25 gm/ Sodium (Chloride) 250 mls @ 166.667 mls/hr IV Q8HR [facility] Iopamidol (Isovue-300 (61%)) 100 ml IVPUSH ONETIME ONE Stop: 04/11/19 12:17 Last Admin: 04/11/19 12:45 Dose: 100 ml Iopamidol (Isovue-300 (61%)) 100 ml IVPUSH ONETIME ONE Stop: 04/13/19 09:33 Last Admin: 04/13/19 09:43 Dose: 100 ml Mupirocin (Bactroban Oint) 15 gm TOP ONETIME ONE Stop: 04/11/19 12:05 Last Admin: 04/11/19 12:24 Dose: 15 gm Potassium Chloride (Klor-Con 10) 40 meq PO ONETIME ONE Stop: 04/13/19 08:24 Last Admin: 04/13/19 09:32 Dose: 40 meq - Exam General: Alert, Oriented HEENT: Pupils Equal, Pupils Reactive Neck: Supple Lungs: Clear to Auscultation, Normal Respiratory Effort Cardiovascular: Regular Rate, Regular Rhythm GI/Abdominal Exam: Normal Bowel Sounds, Soft, Non-Tender Extremities: Normal Inspection, Normal Range of Motion, Non-Tender Physical Findings Comments:: redness, tenderness over left maxillary face, extending to external ear. Improving - Problem List Review Problem List Initiated/Reviewed/Updated: Yes - My Orders Last 24 Hours: My Active Orders 04/14/19 05:11 BASIC METABOLIC PANEL,BMP [CHEM] AM CBC W/O DIFF,HEMOGRAM [HEME] AM 04/15/19 05:11 BASIC METABOLIC PANEL,BMP [CHEM] AM CBC W/O DIFF,HEMOGRAM [HEME] AM 04/16/19 05:11 BASIC METABOLIC PANEL,BMP [CHEM] AM CBC W/O DIFF,HEMOGRAM [HEME] AM - Plan Plan:: 43-year-old presented with left facial redness, swelling, 1 x 1 cm abscess Facial cellulitis with small abscess Repeat CT of facial sinuses shows that abscess is smaller in volume Continue broad spectrum abx Plan for discharge later this week on oral abx Hypokalemia replenish potassium orally DVT prophylaxis with subcutaneous heparin
[2019-04-13] MEDS: Sodium Chloride 0.9% 1,000 ML IV SCH (12:31)
[2019-04-13] MEDS: Zolpidem 5 MG Tab PO PRN (21:06)
[2019-04-14] MEDS: Sodium Chloride 0.9% 1,000 ML IV SCH (01:35)
[2019-04-14] MEDS: Heparin Sodium 5,000 Units/ML Vial SUBCUT SCH ×3 (05:53→21:44)
[2019-04-14 07:20] LABS: CHLORIDE,CL 103 mmol/L (101-111); SODIUM,NA 139 mmol/L (135-145)
[2019-04-14] MEDS: Gentamicin 0.3% Ophth Soln 5 ML Bottle EYELF SCH ×4 (09:58→21:43)
--- NOTE | 2019-04-14 10:05 | PCM.PN ---
- General Info Date of Service: 04/14/19 Admission Dx/Problem (Free Text): Admission Diagnosis/Problem Admission Diagnosis/Problem Cellulitis and abscess of face Subjective Update: facial cellulitis improving, swelling and redness improved Swelling has punctum and expressing pus. Wound dressed this morning no visual disturbance has chronic hearing loss, known, sees bog cutter - Review of Systems General: Reports: No Symptoms. Denies: Fever HEENT: Reports: Other (left external ear wound/abscess) Pulmonary: Reports: No Symptoms Cardiovascular: Reports: No Symptoms Gastrointestinal: Reports: No Symptoms Genitourinary: Reports: No Symptoms Musculoskeletal: Reports: No Symptoms - Patient Data Vitals - Most Recent: Last Vital Signs Temp 36.4 C 04/14/19 07:26 Pulse 97 04/14/19 07:26 Resp 19 04/14/19 07:26 BP 116/71 04/14/19 07:26 Pulse Ox 97 04/14/19 07:26 Weight - Most Recent: 100.516 kg I&O - Last 24 Hours: Intake & Output 04/13/19 04/14/19 04/14/19 22:59 06:59 14:59 Intake Total 690 2513 360 Balance 690 2513 360 Lab Results Last 24 Hours: Laboratory Results - last 24 hr 04/14/19 04/14/19 Range/Units 06:45 06:45 WBC 7.0 (5.0-10.0) 10^3/uL RBC 4.78 (4.6-6.2) 10^6/uL Hgb 14.3 (14.0-18.0) g/dL Hct 42.0 (40.0-54.0) % MCV 87.9 (80-100) fL MCH 29.9 (27.0-34.0) pg MCHC 34.0 (33.0-35.0) g/dL Plt Count 364 (150-450) 10^3/uL Sodium 139 (135-145) mmol/L Potassium 4.0 (3.6-5.0) mmol/L Chloride 103 (101-111) mmol/L Carbon Dioxide 27.0 (21.0-31.0) mmol/L Anion Gap 13.0 BUN 8 (7-18) mg/dL Creatinine 0.7 (0.6-1.3) mg/dL Est Cr Clr Drug Dosing 134.18 mL/min Estimated GFR (MDRD) > 60 Glucose 100 (74-105) mg/dL Calcium 8.8 (8.4-10.2) mg/dl Joao Results Last 24 Hours: Microbiology 04/11/19 12:15 Aerobic Blood Culture - Preliminary Blood - Venous - Lab Draw NO GROWTH AFTER 2 DAYS Anaerobic Blood Culture - Preliminary NO GROWTH AFTER 2 DAYS 04/11/19 12:08 Aerobic Blood Culture - Preliminary Blood - Venous NO GROWTH AFTER 2 DAYS Anaerobic Blood Culture - Preliminary NO GROWTH AFTER 2 DAYS 04/11/19 11:55 Ear Culture - Final Ear, Left Staphylococcus Aureus 04/11/19 11:54 Eye Culture - Final Eye, Left Staphylococcus Aureus Med Orders - Current: Current Medications Acetaminophen (Tylenol) 650 mg PO Q4H PRN PRN Reason: Pain (Mild 1-3)/fever Gentamicin Sulfate (Garamycin 0.3% Ophth Soln) 0 ml EYELF TID [facility] Last Admin: 04/14/19 09:58 Dose: 1 drop Heparin Sodium (Porcine) (Heparin Sodium) 5,000 units SUBCUT Q8HR [facility] Last Admin: 04/14/19 05:53 Dose: 5,000 units Vancomycin HCl 1.25 gm/ Sodium (Chloride) 250 mls @ 166.667 mls/hr IV Q8H [facility] Last Admin: 04/14/19 03:40 Dose: 166.667 mls/hr Sodium Chloride (Normal Saline) 1,000 mls @ 100 mls/hr IV ASDIRECTED [facility] Last Admin: 04/14/19 01:35 Dose: 100 mls/hr Ibuprofen (Motrin) 600 mg PO Q6H PRN PRN Reason: Pain (moderate 4-6) Last Admin: 04/12/19 04:29 Dose: 600 mg Ondansetron HCl (Zofran) 4 mg IVPUSH Q6H PRN PRN Reason: Nausea/Vomiting Ondansetron HCl (Zofran Odt) 4 mg PO Q6H PRN PRN Reason: nausea, able to take PO Oxycodone/Acetaminophen (Percocet 325-5 Mg) 1 tab PO Q4H PRN PRN Reason: Pain (severe 7-10) Last Admin: 04/13/19 06:08 Dose: 1 tab Sodium Chloride (Saline Flush) 10 ml FLUSH ASDIRECTED PRN PRN Reason: Keep Vein Open Last Admin: 04/13/19 05:57 Dose: 10 ml Vancomycin HCl (Pharmacy To Dose - Vancomycin) 0 dose .XX ASDIRECTED [facility] Zolpidem Tartrate (Ambien) 5 mg PO BEDTIME PRN PRN Reason: Sleep Last Admin: 04/13/19 21:06 Dose: 5 mg Discontinued Medications Diphenhydramine HCl (Benadryl) 25 mg IVPUSH ONETIME ONE Stop: 04/11/19 11:59 Last Admin: 04/11/19 12:28 Dose: 25 mg Gentamicin Sulfate (Garamycin 0.3% [facility]) 1 ml EYELF ONETIME ONE Stop: 04/11/19 12:05 Last Admin: 04/11/19 12:26 Dose: 1 ml Sodium Chloride (Normal Saline) 1,000 mls @ 999 mls/hr IV .BOLUS ONE Stop: 04/11/19 12:58 Last Infusion: 04/11/19 16:41 Dose: Infused Vancomycin HCl 1,500 mg/ (Sodium Chloride) 500 mls @ 333.333 mls/hr IV ONETIME ONE Stop: 04/11/19 13:28 Last Infusion: 04/11/19 16:40 Dose: Infused Piperacillin Sod/Tazobactam (Sod 3.375 gm/ Sodium Chloride) 100 mls @ 200 mls/ hr IV ONETIME ONE Stop: 04/11/19 14:04 Last Admin: 04/11/19 16:40 Dose: Not Given Piperacillin Sod/Tazobactam (Sod 3.375 gm/ Sodium Chloride) 100 mls @ 200 mls/ hr IV Q6HR [facility] Last Infusion: 04/13/19 06:47 Dose: Infused Vancomycin HCl 1.25 gm/ Sodium (Chloride) 250 mls @ 166.667 mls/hr IV Q8HR [facility] Iopamidol (Isovue-300 (61%)) 100 ml IVPUSH ONETIME ONE Stop: 04/11/19 12:17 Last Admin: 04/11/19 12:45 Dose: 100 ml Iopamidol (Isovue-300 (61%)) 100 ml IVPUSH ONETIME ONE Stop: 04/13/19 09:33 Last Admin: 04/13/19 09:43 Dose: 100 ml Mupirocin (Bactroban Oint) 15 gm TOP ONETIME ONE Stop: 04/11/19 12:05 Last Admin: 04/11/19 12:24 Dose: 15 gm Potassium Chloride (Klor-Con 10) 40 meq PO ONETIME ONE Stop: 04/13/19 08:24 Last Admin: 04/13/19 09:32 Dose: 40 meq - Exam General: Alert, Oriented HEENT: Pupils Equal, Pupils Reactive Lungs: Clear to Auscultation, Normal Respiratory Effort Cardiovascular: Regular Rate, Regular Rhythm GI/Abdominal Exam: Normal Bowel Sounds, Soft, Non-Tender, No Organomegaly Extremities: Normal Inspection, Normal Range of Motion, Non-Tender - Problem List Review Problem List Initiated/Reviewed/Updated: Yes - My Orders Last 24 Hours: My Active Orders 04/13/19 11:15 Sodium Chloride 0.9% [Normal Saline] 1,000 ml IV ASDIRECTED 04/15/19 05:11 BASIC METABOLIC PANEL,BMP [CHEM] AM CBC W/O DIFF,HEMOGRAM [HEME] AM 04/16/19 05:11 BASIC METABOLIC PANEL,BMP [CHEM] AM CBC W/O DIFF,HEMOGRAM [HEME] AM - Plan Plan:: 43-year-old presented with left facial redness, swelling, 1 x 1 cm abscess Facial cellulitis with small abscess Repeat CT of facial sinuses shows that abscess is smaller in volume Continue broad spectrum abx Plan for discharge later this week on oral abx Dress ext ear wound, Kerlix, wet to dry Hypokalemia, resolved DVT prophylaxis with subcutaneous heparin
[2019-04-14] MEDS: Sodium Chloride 0.9% 10 ML Syringe FLUSH PRN ×4 (12:50→21:41)
[2019-04-14] MEDS: Zolpidem 5 MG Tab PO PRN (19:55)
[2019-04-15] MEDS: Sodium Chloride 0.9% 10 ML Syringe FLUSH PRN (04:00)
[2019-04-15] MEDS: Heparin Sodium 5,000 Units/ML Vial SUBCUT SCH (05:37)
[2019-04-15 07:12] LABS: ANION GAP 14.1; CHLORIDE,CL 102 mmol/L (101-111); SODIUM,NA 139 mmol/L (135-145)
[2019-04-15] MEDS: Gentamicin 0.3% Ophth Soln 5 ML Bottle EYELF SCH (09:47)
[2019-04-15] MEDS ORDERED: Doxycycline 100 MG Cap PO SCH (10:00)
--- NOTE | 2019-04-15 11:13 | PCM.DCSUM1 ---
Discharge Summary - Hospital Course Free Text/Narrative:: 33-year-old with history of pre-diabetes, IVDU who presents with left sided facial swelling associated with drainage from in front of the left ear. Wound swab grew S. aureus. CT scan showed facial cellulitis and abscess Was treated with IV abx for four days with improvement. Repeat CT scan showed absess had reduced in size Will discharge on 10 days of Doxycyline and Keflex Follow up with PCP Has some chronic hearing loss and follows with presser machine. Diagnosis: Stroke: No Modified Olga Scale: No Symptoms at All Modified Olga Scale Score: 0 - Discharge Data Discharge Date: 04/15/19 Discharge Disposition: Home, Self-Care 01 Condition: Good - Referral to Home Health Primary Care Physician: PCP Unobtainable - Patient Instructions Diet: Usual Diet as Tolerated Activity: As Tolerated Wound/Incision Care: Keep Operative Site/Wound Site Clean and Dry - Discharge Plan *PRESCRIPTION DRUG MONITORING PROGRAM REVIEWED*: No *COPY OF PRESCRIPTION DRUG MONITORING REPORT IN PATIENT VASU: No Prescriptions/Med Rec: cephALEXin [Keflex] 500 mg PO Q6HR 10 Days #40 cap Doxycycline [Vibramycin] 100 mg PO BID 10 Days #20 cap Gentamicin [Garamycin 0.3% Ophth Soln] 0 ml EYELF TID 10 Days #1 bottle Home Medications: Home Meds Doxycycline [Vibramycin] 100 mg PO BID 10 Days #20 cap 04/15/19 [Rx] Gentamicin [Garamycin 0.3% Ophth Soln] 0 ml EYELF TID 10 Days #1 bottle [Rx] cephALEXin [Keflex] 500 mg PO Q6HR 10 Days #40 cap 04/15/19 [Rx] Patient Handouts: Skin Abscess, [id number], Doxycycline tablets or capsules, Cellulitis, Adult, [id number], Cephalexin tablets or capsules Referrals: PCP,Unobtain [Primary Care Provider] - - Discharge Summary/Plan Comment DC Time >30 min.: Yes - General Info Date of Service: 04/15/19 Admission Dx/Problem (Free Text: Admission Diagnosis/Problem Admission Diagnosis/Problem Cellulitis and abscess of face Subjective Update: facial cellulitis improving, swelling and redness improved no visual disturbance has chronic hearing loss, known, sees presser machine - Review of Systems General: Denies: Fever HEENT: Reports: Other (facial cellulitis, improved) Pulmonary: Reports: No Symptoms Cardiovascular: Reports: No Symptoms Gastrointestinal: Reports: No Symptoms Genitourinary: Reports: No Symptoms Musculoskeletal: Reports: No Symptoms Neurological: Reports: No Symptoms - Patient Data Vitals - Most Recent: Last Vital Signs Temp 36.0 C 04/15/19 07:00 Pulse 93 04/15/19 07:00 Resp 18 04/15/19 07:00 BP 123/64 04/15/19 07:00 Pulse Ox 95 04/15/19 07:00 Weight - Most Recent: 100.516 kg I&O - Last 24 hours: Intake & Output 04/14/19 04/15/19 04/15/19 22:59 06:59 14:59 Intake Total 770 250 360 Balance 770 250 360 Lab Results - Last 24 hrs: Laboratory Results - last 24 hr 04/14/19 04/15/19 04/15/19 Range/Units 11:25 05:54 05:54 WBC 7.3 (5.0-10.0) 10^3/uL RBC 5.21 (4.6-6.2) 10^6/uL Hgb 15.3 (14.0-18.0) g/dL Hct 45.7 (40.0-54.0) % MCV 87.7 (80-100) fL MCH 29.4 (27.0-34.0) pg MCHC 33.5 (33.0-35.0) g/dL Plt Count 387 (150-450) 10^3/uL Sodium 139 (135-145) mmol/L Potassium 4.1 (3.6-5.0) mmol/L Chloride 102 (101-111) mmol/L Carbon Dioxide 27.0 (21.0-31.0) mmol/L Anion Gap 14.1 BUN 12 (7-18) mg/dL Creatinine 0.7 (0.6-1.3) mg/dL Est Cr Clr Drug Dosing 134.18 mL/min Estimated GFR (MDRD) > 60 Glucose 102 (74-105) mg/dL Calcium 8.9 (8.4-10.2) mg/dl Vancomycin Trough 10.7 (10-15) ug/ml ETIENNE Results - Last 24 hrs: Microbiology 04/11/19 12:15 Aerobic Blood Culture - Preliminary Blood - Venous - Lab Draw NO GROWTH AFTER 3 DAYS Anaerobic Blood Culture - Preliminary NO GROWTH AFTER 3 DAYS 04/11/19 12:08 Aerobic Blood Culture - Preliminary Blood - Venous NO GROWTH AFTER 3 DAYS Anaerobic Blood Culture - Preliminary NO GROWTH AFTER 3 DAYS Med Orders - Current: Current Medications Acetaminophen (Tylenol) 650 mg PO Q4H PRN PRN Reason: Pain (Mild 1-3)/fever Cephalexin (Keflex) 500 mg PO Q6HR SHAINA Doxycycline Hyclate (Vibramycin) 100 mg PO BID [facility] Gentamicin Sulfate (Garamycin 0.3% Ophth Soln) 0 ml EYELF TID [facility] Last Admin: 04/15/19 09:47 Dose: 1 drop Heparin Sodium (Porcine) (Heparin Sodium) 5,000 units SUBCUT Q8HR [facility] Last Admin: 04/15/19 05:37 Dose: 5,000 units Ibuprofen (Motrin) 600 mg PO Q6H PRN PRN Reason: Pain (moderate 4-6) Last Admin: 04/12/19 04:29 Dose: 600 mg Ondansetron HCl (Zofran) 4 mg IVPUSH Q6H PRN PRN Reason: Nausea/Vomiting Ondansetron HCl (Zofran Odt) 4 mg PO Q6H PRN PRN Reason: nausea, able to take PO Oxycodone/Acetaminophen (Percocet 325-5 Mg) 1 tab PO Q4H PRN PRN Reason: Pain (severe 7-10) Last Admin: 04/13/19 06:08 Dose: 1 tab Sodium Chloride (Saline Flush) 10 ml FLUSH ASDIRECTED PRN PRN Reason: Keep Vein Open Last Admin: 04/15/19 04:00 Dose: 10 ml Zolpidem Tartrate (Ambien) 5 mg PO BEDTIME PRN PRN Reason: Sleep Last Admin: 04/14/19 19:55 Dose: 5 mg Discontinued Medications Diphenhydramine HCl (Benadryl) 25 mg IVPUSH ONETIME ONE Stop: 04/11/19 11:59 Last Admin: 04/11/19 12:28 Dose: 25 mg Gentamicin Sulfate (Garamycin 0.3% Ophth Soln) 1 ml EYELF ONETIME ONE Stop: 04/11/19 12:05 Last Admin: 04/11/19 12:26 Dose: 1 ml Sodium Chloride (Normal Saline) 1,000 mls @ 999 mls/hr IV .BOLUS ONE Stop: 04/11/19 12:58 Last Infusion: 04/11/19 16:41 Dose: Infused Vancomycin HCl 1,500 mg/ (Sodium Chloride) 500 mls @ 333.333 mls/hr IV ONETIME ONE Stop: 04/11/19 13:28 Last Infusion: 04/11/19 16:40 Dose: Infused Piperacillin Sod/Tazobactam (Sod 3.375 gm/ Sodium Chloride) 100 mls @ 200 mls/ hr IV ONETIME ONE Stop: 04/11/19 14:04 Last Admin: 04/11/19 16:40 Dose: Not Given Piperacillin Sod/Tazobactam (Sod 3.375 gm/ Sodium Chloride) 100 mls @ 200 mls/ hr IV Q6HR SHAINA Last Infusion: 04/13/19 06:47 Dose: Infused Vancomycin HCl 1.25 gm/ Sodium (Chloride) 250 mls @ 166.667 mls/hr IV Q8HR SHAINA Vancomycin HCl 1.25 gm/ Sodium (Chloride) 250 mls @ 166.667 mls/hr IV Q8H SHAINA Last Admin: 04/15/19 04:00 Dose: 166.667 mls/hr Sodium Chloride (Normal Saline) 1,000 mls @ 100 mls/hr IV ASDIRECTED [facility] Last Infusion: 04/14/19 10:59 Dose: 0 mls/hr Iopamidol (Isovue-300 (61%)) 100 ml IVPUSH ONETIME ONE Stop: 04/11/19 12:17 Last Admin: 04/11/19 12:45 Dose: 100 ml Iopamidol (Isovue-300 (61%)) 100 ml IVPUSH ONETIME ONE Stop: 04/13/19 09:33 Last Admin: 04/13/19 09:43 Dose: 100 ml Mupirocin (Bactroban Oint) 15 gm TOP ONETIME ONE Stop: 04/11/19 12:05 Last Admin: 04/11/19 12:24 Dose: 15 gm Potassium Chloride (Klor-Con 10) 40 meq PO ONETIME ONE Stop: 04/13/19 08:24 Last Admin: 04/13/19 09:32 Dose: 40 meq Vancomycin HCl (Pharmacy To Dose - Vancomycin) 0 dose .XX ASDIRECTED [facility] - Exam General: Reports: Alert, Oriented HEENT: Reports: Pupils Equal, Pupils Reactive Neck: Reports: Supple Lungs: Reports: Clear to Auscultation, Normal Respiratory Effort Cardiovascular: Reports: Regular Rate, Regular Rhythm, No Murmurs GI/Abdominal Exam: Normal Bowel Sounds, Soft, Non-Tender, No Organomegaly
[2019-04-15] MEDS: Cephalexin 500 MG Cap PO SCH (13:58)
== END 2019-04-15 11:26 | disposition home or self-care (01) | DRG 603 ==
LOC: DL.ED 11:41 → DL.MS 13:52 → UNDOADMIN 13:52
PROVIDERS: ADMIT Internal Medicine; ATTEND Hospitalist
DX: L03.211 Cellulitis of face (principal); L02.01 Cutaneous abscess of face; B95.61 Methicillin susceptible Staphylococcus aureus infection as the cause of diseases classified elsewhere; H91.90 Unspecified hearing loss, unspecified ear; E87.6 Hypokalemia; R73.03 Prediabetes; E66.9 Obesity, unspecified; Z90.49 Acquired absence of other specified parts of digestive tract; Z68.35 Body mass index [BMI] 35.0-35.9, adult
CPT/HCPCS: 36415; 70487; 80048; 80053; 80202; 83605; 85025; 85027; 86140; 87040; 87070; 87077; 87186; 96365; 96375; 99284-25; A9270-GY; J1200; J1644; J2543; J3370; J7030; J7040; J7050; Q9967

== ENCOUNTER 2019-05-05 18:24 | Emergency (ER) | payer MEDICAID ==
[2019-05-05] MEDS ORDERED: Acetaminophen/HYDROcodone 325-10 MG Tab PO ONE (19:54)
--- NOTE | 2019-05-05 20:07 | EDM.PDOC ---
ED HPI GENERAL MEDICAL PROBLEM - General Chief Complaint: Lower Extremity Injury/Pain Stated Complaint: LEFT ANKLE POSSIBLE FRACTURE PER PT Time Seen by Provider: 05/05/19 19:20 Source of Information: Reports: Patient History Limitations: Reports: No Limitations - History of Present Illness INITIAL COMMENTS - FREE TEXT/NARRATIVE: This 33 yo male patient reports to the ED with left ankle pain due to rolling his ankle this morning while taking out garbage. The patient reports increased pain throughout the day with ambulation. 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: Reports: Acetaminophen - Related Data Allergies Allergy/AdvReac Type Severity Reaction Status Date / Time tramadol AdvReac Mild Nausea Verified 05/05/19 18:39 Home Meds: Home Meds Acetaminophen [Tylenol Extra Strength] 1,000 mg PO ASDIRECTED PRN 05/05/19 [ History] Past Medical History HEENT History: Reports: Hard of Hearing, Impaired Vision Gastrointestinal History: Reports: None Genitourinary History: Reports: Other (See Below) Musculoskeletal History: Reports: Other (See Below) Other Musculoskeletal History: broken hand Neurological History: Reports: None Endocrine/Metabolic History: Reports: Obesity/BMI 30+ Other Endocrine/Metabolic History: pre-diabetes Hematologic History: Reports: None Immunologic History: Reports: None Oncologic (Cancer) History: Reports: None Dermatologic History: Reports: Eczema - Infectious Disease History Infectious Disease History: Reports: Chicken Pox - Past Surgical History GI Surgical History: Reports: Appendectomy Musculoskeletal Surgical History: Reports: Other (See Below) Other Musculoskeletal Surgeries/Procedures:: hand surgery Social & Family History - Family History Family Medical History: Noncontributory - Tobacco Use Smoking Status *Q: Never Smoker - Caffeine Use Caffeine Use: Reports: Coffee, Soda Review of Systems - Review of Systems Review Of Systems: ROS reveals no pertinent complaints other than HPI. ED EXAM, GENERAL - Physical Exam Exam: See Below Exam Limited By: No Limitations General Appearance: Alert, WD/WN, Moderate Distress Eye Exam: Left Eye: Other (contusion (healing)), Bilateral Eye: EOMI, PERRL Ears: Normal External Exam, Normal Canal, Hearing Grossly Normal, Normal TMs Nose: Normal Inspection, Normal Mucosa, No Blood Throat/Mouth: Normal Inspection, Normal Lips, Normal Teeth, Normal Gums, Normal Oropharynx, Normal Voice, No Airway Compromise Head: Atraumatic, Normocephalic Neck: Normal Inspection, Supple, Non-Tender, Full Range of Motion Respiratory/Chest: No Respiratory Distress, Lungs Clear, Normal Breath Sounds, No Accessory Muscle Use, Chest Non-Tender Cardiovascular: Normal Peripheral Pulses, Regular Rate, Rhythm, No Edema, No Gallop, No JVD, No Murmur, No Rub GI/Abdominal: Normal Bowel Sounds, Soft, Non-Tender, No Organomegaly, No Distention, No Abnormal Bruit, No Mass (Male) Exam: Deferred Rectal (Males) Exam: Deferred Back Exam: Normal Inspection, Full Range of Motion, NT Extremities: Leg Pain (left ankle pain and swelling) Neurological: Alert, Oriented, CN II-XII Intact, Normal Cognition, Normal Gait, Normal Reflexes, No Motor/Sensory Deficits Psychiatric: Normal Affect, Normal Mood Skin Exam: Warm, Dry, Intact, Normal Color, No Rash Lymphatic: No Adenopathy ED TRAUMA EXTREMITY PROCEDURES - Splinting Left Lower Extremity Splint Site: Left ankle (Tibia/Fibula) Pre-Procedure NV Status: Normal Post-Procedure NV Status: Normal Splint Material: Fiberglass Splint Design: Stirrup, Posterior Applied & Form Fitted By: Provider Provider Post-Splint Application NV Check: NV Status Normal, Good Position Complications: No Course - Vital Signs Last Recorded V/S: Last Vital Signs Temp 37.6 C 05/05/19 18:34 Pulse 117 H 05/05/19 18:34 Resp 18 05/05/19 18:34 BP 161/93 H 05/05/19 18:34 Pulse Ox 99 05/05/19 18:34 - Orders/Labs/Meds Orders: Active Orders 24 hr Category Date Time Status Ankle Min 3V Lt [CR] Urgent Exams 05/05/19 18:49 Taken Ankle wo Cont Lt [CT] Urgent Exams 05/05/19 20:05 Ordered DME for Discharge [COMM] Urgent Oth 05/05/19 20:07 Ordered Meds: Medications Discontinued Medications Generic Name Dose Route Start Last Admin Trade Name Freq PRN Reason Stop Dose Admin Hydrocodone Bitart/Acetaminophen 1 tab 05/05/19 19:54 05/05/19 19:58 [place] 325-10 Mg PO 05/05/19 19:55 1 tab ONETIME ONE Administration Departure - Departure Time of Disposition: 20:56 Disposition: Home, Self-Care 01 Condition: Fair Clinical Impression: Fracture of left tibia and fibula Qualifiers: Encounter type: initial encounter Fracture type: closed Qualified Code(s): S82.202A - Unspecified fracture of shaft of left tibia, initial encounter for closed fracture; S82.402A - Unspecified fracture of shaft of left fibula, initial encounter for closed fracture - Discharge Information *PRESCRIPTION DRUG MONITORING PROGRAM REVIEWED*: Not Applicable *COPY OF PRESCRIPTION DRUG MONITORING REPORT IN PATIENT VASU: Not Applicable Instructions: Cast or Splint Care, Adult, [id number], Pain Medicine Instructions, [id number], Crutch Use, Adult, [id number], Tibial Fracture, Adult, [id number] Forms: ED Department Discharge Care Plan Goals: The patient was advised of the examination and x-ray results during the visit. During the visit, a consult call was placed to Dr. Ortiz (Orthopedics with [facility] in [place]). Dr. Ortiz requested that the patient be splinted, remain non weight bearing on the left ankle and follow-up with him next Thursday (05/10/19). The patient should call [facility] at to set up his appointment for 05/10/19. The patient was given an oral dose of [place] while in the ED. The patient was discharged with a script for [place] (10/) #8 to take 1 by mouth every 6 hours as needed for pain. The patient was encouraged to rest, ice and elevate his left ankle. If the patient has any additional symptoms or concerns, the patient should either contact [facility], his primary care facility or return to the emergency department. - My Orders Last 24 Hours: My Active Orders 05/05/19 18:49 Ankle Min 3V Lt [CR] Urgent 05/05/19 20:05 Ankle wo Cont Lt [CT] Urgent 05/05/19 20:07 DME for Discharge [COMM] Urgent - Assessment/Plan Last 24 Hours: My Active Orders 05/05/19 18:49 Ankle Min 3V Lt [CR] Urgent 05/05/19 20:05 Ankle wo Cont Lt [CT] Urgent 05/05/19 20:07 DME for Discharge [COMM] Urgent
== END 2019-05-05 21:20 | disposition home or self-care (01) ==
LOC: DL.ED 18:24
DX: S82.302A Unspecified fracture of lower end of left tibia, initial encounter for closed fracture (principal); S82.832A Other fracture of upper and lower end of left fibula, initial encounter for closed fracture; E66.9 Obesity, unspecified; Z68.34 Body mass index [BMI] 34.0-34.9, adult; Z88.8 Allergy status to other drugs, medicaments and biological substances; X50.1XXA Overexertion from prolonged static or awkward postures, initial encounter
CPT/HCPCS: 73610; 73700; 99284; A9270

== ENCOUNTER 2019-10-28 22:05 | Emergency (ER) | payer MEDICAID ==
[2019-10-28] MEDS ORDERED: Clindamycin Phosphate 900 MG in Sodium Chloride 0.9% 100 ML IV ONE (22:18)
--- NOTE | 2019-10-28 22:23 | EDM.PDOC ---
ED HPI GENERAL MEDICAL PROBLEM - General Chief Complaint: ENT Problem Stated Complaint: SWELLING TO THE RIGHT SIDE OF FACE Time Seen by Provider: 10/28/19 22:18 Source of Information: Reports: Patient History Limitations: Reports: No Limitations - History of Present Illness INITIAL COMMENTS - FREE TEXT/NARRATIVE: Dx with stye to right eye started on augmentin yesterday, more swollen tonight. Right Face/Facial Pain Score (Numeric/FACES): 4 - Related Data Allergies Allergy/AdvReac Type Severity Reaction Status Date / Time tramadol AdvReac Mild Nausea Verified 05/05/19 18:39 Home Meds: Home Meds Acetaminophen [Tylenol Extra Strength] 1,000 mg PO ASDIRECTED PRN 05/05/19 [ History] Past Medical History HEENT History: Reports: Hard of Hearing, Impaired Vision Gastrointestinal History: Reports: None Genitourinary History: Reports: Other (See Below) Musculoskeletal History: Reports: Other (See Below) Other Musculoskeletal History: broken hand Neurological History: Reports: None Endocrine/Metabolic History: Reports: Obesity/BMI 30+ Other Endocrine/Metabolic History: pre-diabetes Hematologic History: Reports: None Immunologic History: Reports: None Oncologic (Cancer) History: Reports: None Dermatologic History: Reports: Eczema - Infectious Disease History Infectious Disease History: Reports: Chicken Pox - Past Surgical History GI Surgical History: Reports: Appendectomy Musculoskeletal Surgical History: Reports: Other (See Below) Other Musculoskeletal Surgeries/Procedures:: hand surgery Social & Family History - Family History Family Medical History: Noncontributory - Tobacco Use Smoking Status *Q: Current Status Unknown - Caffeine Use Caffeine Use: Reports: Soda - Recreational Drug Use Recreational Drug Use: Yes Drug Use in Last 12 Months: Yes Recreational Drug Type: Reports: Marijuana/Hashish, Methamphetamine Recreational Drug Use Frequency: Daily ED ROS GENERAL - Review of Systems Review Of Systems: Comprehensive ROS is negative, except as noted in HPI. ED EXAM, GENERAL - Physical Exam Exam: See Below Exam Limited By: No Limitations General Appearance: Alert, WD/WN, Mild Distress, Other (discomfort) Eye Exam: Right Eye: Other (right stye infection, upper lid erythema swolen, no drainage noted) Ears: Hearing Grossly Normal Throat/Mouth: Normal Voice, No Airway Compromise Head: Atraumatic Neck: Non-Tender, Full Range of Motion Respiratory/Chest: No Respiratory Distress Cardiovascular: Regular Rate, Rhythm GI/Abdominal: Soft, Non-Tender Neurological: Alert, Oriented, Normal Cognition, Normal Gait, No Motor/Sensory Deficits Psychiatric: Flat Affect Skin Exam: Warm, Dry, Normal Color Lymphatic: No Adenopathy Course - Vital Signs Last Recorded V/S: Last Vital Signs Temp 36.8 C 10/28/19 22:17 Pulse 94 10/28/19 22:17 Resp 20 10/28/19 22:17 BP 153/95 H 10/28/19 22:17 Pulse Ox 96 10/28/19 22:17 - Orders/Labs/Meds Meds: Medications Discontinued Medications Generic Name Dose Route Start Last Admin Trade Name Freq PRN Reason Stop Dose Admin Clindamycin Phosphate 900 mg/ 106 mls @ 200 mls/hr 10/28/19 22:18 10/28/19 22 :26 Sodium Chloride IV 10/28/19 22:49 200 mls/hr ONETIME ONE Administration Departure - Departure Time of Disposition: 23:00 Disposition: Home, Self-Care 01 Condition: Good Clinical Impression: Stye Qualifiers: Laterality: right Eyelid: upper Qualified Code(s): H00.011 - Hordeolum externum right upper eyelid - Discharge Information Instructions: Stye Forms: ED Department Discharge Additional Instructions: 1) keep eye clean 2) don't rub eye 3) follow up with clinic 4) stop augmentin rx given; clindamycin 300mg qid x 40 Sepsis Event Note - Evaluation Sepsis Screening Result: No Definite Risk - Focused Exam Vital Signs: Vital Signs Temp Pulse Resp BP Pulse Ox 10/28/19 22:17 36.8 C 94 20 153/95 H 96 Date Exam was Performed: 10/29/19 Time Exam was Performed: 06:21
== END 2019-10-28 23:01 | disposition home or self-care (01) ==
LOC: DL.ED 22:05
DX: H00.011 Hordeolum externum right upper eyelid (principal); E66.9 Obesity, unspecified; Z68.37 Body mass index [BMI] 37.0-37.9, adult; F17.200 Nicotine dependence, unspecified, uncomplicated; Z88.5 Allergy status to narcotic agent
CPT/HCPCS: 96365; 99283; J3490; J7050

== ENCOUNTER 2021-05-26 19:40 | Emergency (ER) | payer MEDICAID ==
--- NOTE | 2021-05-26 19:54 | EDM.PDOC ---
ED HPI GENERAL MEDICAL PROBLEM - General Chief Complaint: ENT Problem Stated Complaint: HEARING AID PIECE STUCK DEEP IN EAR Time Seen by Provider: 05/26/21 19:52 Source of Information: Reports: Patient, RN History Limitations: Reports: No Limitations - History of Present Illness INITIAL COMMENTS - FREE TEXT/NARRATIVE: ED with c/o piece of hearing aide stuck in left ear for past 1/2 hour. - Related Data Allergies Allergy/AdvReac Type Severity Reaction Status Date / Time tramadol AdvReac Mild Nausea Verified 05/05/19 18:39 Home Meds: Home Meds Acetaminophen [Tylenol Extra Strength] 1,000 mg PO ASDIRECTED PRN 05/05/19 [History] Past Medical History HEENT History: Reports: Hard of Hearing, Impaired Vision Cardiovascular History: Reports: Hypertension Gastrointestinal History: Reports: None Genitourinary History: Reports: Other (See Below) Musculoskeletal History: Reports: Other (See Below) Other Musculoskeletal History: broken hand Neurological History: Reports: None Psychiatric History: Reports: Anxiety, Depression Endocrine/Metabolic History: Reports: Obesity/BMI 30+ Other Endocrine/Metabolic History: pre-diabetes Hematologic History: Reports: None Immunologic History: Reports: None Oncologic (Cancer) History: Reports: None Dermatologic History: Reports: Eczema - Infectious Disease History Infectious Disease History: Reports: Chicken Pox - Past Surgical History GI Surgical History: Reports: Appendectomy Musculoskeletal Surgical History: Reports: Other (See Below) Other Musculoskeletal Surgeries/Procedures:: hand surgery Social & Family History - Family History Family Medical History: No Pertinent Family History - Caffeine Use Caffeine Use: Reports: Soda ED ROS ENT - Review of Systems Review Of Systems: Comprehensive ROS is negative, except as noted in HPI. ED EXAM, ENT - Physical Exam Exam: See Below Exam Limited By: No Limitations General Appearance: Alert, Anxious Eye Exam: Bilateral Eye: EOMI Ears: Canal Foreign Body (FB visible left ear canal, easily removed with forcep. re-evaluation canal clear, no redness) Nose: Normal Inspection Mouth/Throat: Normal Inspection Head: Atraumatic, Normocephalic Neck: Normal Inspection Respiratory/Chest: No Respiratory Distress Neurological: Alert, Oriented Psychiatric: Normal Affect Course - Vital Signs Last Recorded V/S: Last Vital Signs Temp 96.9 F 05/26/21 19:51 Pulse 110 H 05/26/21 19:51 Resp 20 05/26/21 19:51 BP 154/87 H 05/26/21 19:51 Pulse Ox 97 05/26/21 19:51 Departure - Departure Time of Disposition: 19:52 Disposition: Home, Self-Care 01 Condition: Good Clinical Impression: Foreign body in ear Qualifiers: Encounter type: initial encounter Laterality: left Qualified Code(s): T16.2XXA - Foreign body in left ear, initial encounter - Discharge Information *PRESCRIPTION DRUG MONITORING PROGRAM REVIEWED*: No *COPY OF PRESCRIPTION DRUG MONITORING REPORT IN PATIENT VASU: No Instructions: Ear Foreign Body, [id number] Referrals: PCP,None [Primary Care Provider] - Forms: ED Department Discharge Additional Instructions: Follow up clinic if redness swelling or severe pain Sepsis Event Note (ED) - Focused Exam Vital Signs: Vital Signs Temp Pulse Resp BP Pulse Ox 05/26/21 19:51 96.9 F 110 H 20 154/87 H 97
== END 2021-05-26 20:01 | disposition home or self-care (01) ==
LOC: DL.ED 19:40
DX: T16.2XXA Foreign body in left ear, initial encounter (principal); I10 Essential (primary) hypertension; E66.9 Obesity, unspecified; Z68.41 Body mass index [BMI] 40.0-44.9, adult; Z88.5 Allergy status to narcotic agent
CPT/HCPCS: 69200; 99282-25